=== PATIENT | female | born 1985 | race Caucasian/White ===

== ENCOUNTER 2017-11-24 14:43 | Emergency (ER) | payer OTHER ==
[2017-11-24 15:07] LABS: BILIRUBIN,URINE NEGATIVE (NEGATIVE); GLUCOSE, URINE (UA) NEGATIVE (NEGATIVE); KETONES,URINE (UA) 15 mg/dL (NEGATIVE); LEUKOCYTE ESTERASE, URINE NEGATIVE (NEGATIVE); NITRITE,URINE NEGATIVE (NEGATIVE); OCCULT BLOOD,URINE NEGATIVE (NEGATIVE); PROTEIN,URINE NEGATIVE (NEGATIVE); UROBILINOGEN,URINE 0.2 (NORMAL) E.U./dL (NORMAL)
[2017-11-24 15:11] LABS: CLARITY,URINE HAZY (CLEAR)
[2017-11-24 15:21] LABS: RBC,URINE 0-5 /HPF (0-5)
[2017-11-24 15:22] LABS: AMORPHOUS SEDIMENT,UR Moderate /LPF; BACTERIA,URINE Few /HPF (None Seen); SQUAMOUS EPITHELIAL CELL,UR FEW Squamous (<= Few)
[2017-11-24 15:25] LABS: HCG UR QUAL NEGATIVE
[2017-11-24] MEDS ORDERED: ONDANSETRON 4 MG/2 ML VIAL IVP STA (15:29)
[2017-11-24] MEDS ORDERED: KETOROLAC 60 MG/2 ML VIAL IVP STA (15:29)
--- NOTE | 2017-11-24 15:32 | ED Physician Documentation ---
PD HPI CHEST PAIN - Stated complaint Stated Complaint: ABD PX - Chief complaint Chief Complaint: Abd Pain - History obtained from History obtained from: Patient - History of Present Illness Timing - onset: Other (Since the end of September she has had bloating and intermittent right lower quadrant pain. She had a severe pain in the middle of October, then now 2 days of right lower quadrant pain without bleeding. She has been nauseous but no vomiting. She has a history of uterine fibroid removal at age 17 and 2 C-sections since then.) Review of Systems Ten Systems: 10 systems reviewed and negative Constitutional: denies: Fever, Chills Cardiac: denies: Chest pain / pressure, Palpitations GI: reports: Abdominal Pain, Nausea. denies: Vomiting : reports: Irregular menses (chronic). denies: Dysuria, Frequency, Now EGA, Control, Hysterectomy PD PAST MEDICAL HISTORY - Present Medications Home Medications: Ambulatory Orders Medication Instructions Recorded Confirmed HYDROcod/ACETAM 5/325 [Butler 5/325] 1 - 2 ea PO Q6H PRN #15 tablet 11/24/17 Ibuprofen [Motrin] 800 mg PO Q8H PRN #30 tablet 11/24/17 Ondansetron HCl [Zofran] 4 mg PO Q6H PRN #10 tablet 11/24/17 - Allergies Allergies/Adverse Reactions: Allergies Allergy/AdvReac Type Severity Reaction Status Date / Time meperidine [From Demerol] AdvReac Nausea Verified 11/24/17 14:52 PD ED PE NORMAL - Vitals Vital signs reviewed: Yes - General General: Alert and oriented X 3, No acute distress - Cardiac Cardiac: RRR, No murmur - Respiratory Respiratory: No respiratory distress, Clear bilaterally - Abdomen Abdomen: Normal bowel sounds, Soft, Other (TTP RLQ No G/R/M) - Back Back: No CVA TTP, No spinal TTP - Derm Derm: Normal color, Warm and dry - Extremities Extremities: No edema, No calf tenderness / cord - Neuro Neuro: Alert and oriented X 3, Normal speech - Psych Psych: Normal mood, Normal affect Results - Vitals Vitals: Vital Signs - 24 hr 11/24/17 11/24/17 11/24/17 14:48 15:49 16:59 Temperature 36.9 C 36.6 C Heart Rate 80 84 88 Respiratory 18 16 16 Rate Blood Pressure 124/73 100/60 102/64 O2 Saturation 100 98 99 Oxygen O2 Source Room air - Labs Labs: Laboratory Tests 11/24/17 11/24/17 11/24/17 15:02 15:40 15:40 WBC 9.6 RBC 4.51 Hgb 14.1 Hct 40.8 MCV 90.4 MCH 31.2 H MCHC 34.5 RDW 12.9 Plt Count 233 MPV 9.4 Neut # (Auto) 6.8 H Lymph # (Auto) 2.0 [place] # (Auto) 0.5 Eos # (Auto) 0.3 Baso # (Auto) 0.1 Absolute Nucleated RBC 0.00 Nucleated RBC % 0.0 Sodium 138 Potassium 3.1 L Chloride 100 L Carbon Dioxide 28 Anion Gap 10.0 BUN 14 Creatinine 0.7 Estimated GFR (MDRD) 96 Glucose 128 H Calcium 9.2 Total Bilirubin 1.0 AST 22 ALT 16 Alkaline Phosphatase 52 Total Protein 7.9 Albumin 4.6 Globulin 3.3 Albumin/Globulin Ratio 1.4 Lipase 30 Urine Color YELLOW Urine Clarity HAZY Urine pH 7.0 Ur Specific [place] 1.015 Urine Protein NEGATIVE Urine Glucose (UA) NEGATIVE Urine Ketones 15 H Urine Occult Blood NEGATIVE Urine Nitrite NEGATIVE Urine Bilirubin NEGATIVE Urine Urobilinogen 0.2 (NORMAL) Ur Leukocyte Esterase NEGATIVE Urine RBC 0-5 Urine WBC 0-3 Ur Squamous Epith Cells FEW Squamous Amorphous Sediment Moderate Urine Bacteria Few Ur Microscopic Review INDICATED Urine Culture Comments NOT INDICATED Urine HCG, Qual NEGATIVE - Rads (name of study) CT Abd Radiology: EMP read contemporaneously (Multiple right ovarian cysts the largest being 3.3 x 2.9 cm with a small amount of free fluid. Normal appendix.) PD MEDICAL DECISION MAKING - ED course ED course: 32-year-old woman with PCO S presents with right lower quadrant pain, borderline leukocytosis. CT scan done showing right ovarian cyst and normal appendix. She was comfortable after Toradol. - Sepsis Event Vital Signs: Vital Signs - 24 hr 11/24/17 11/24/17 11/24/17 14:48 15:49 16:59 Temperature 36.9 C 36.6 C Heart Rate 80 84 88 Respiratory 18 16 16 Rate Blood Pressure 124/73 100/60 102/64 O2 Saturation 100 98 99 Oxygen O2 Source Room air Departure - Departure Disposition: 01 Home, Self Care Clinical Impression: Abdominal pain Qualifiers: Abdominal location: right lower quadrant Qualified Code(s): R10.31 - Right lower quadrant pain Cyst of ovary Qualifiers: Laterality: right Qualified Code(s): N83.201 - Unspecified ovarian cyst, right side Condition: Good Record reviewed to determine appropriate education?: Yes Instructions: ED Cyst Ovarian Follow-Up: [facility] [Provider Group] - Within 1 week Prescriptions: HYDROcod/ACETAM 5/325 [Butler 5/325] 1 - 2 ea PO Q6H PRN #15 tablet PRN Reason: Pain Ibuprofen [Motrin] 800 mg PO Q8H PRN #30 tablet PRN Reason: PAIN &/OR FEVER Ondansetron HCl [Zofran] 4 mg PO Q6H PRN #10 tablet PRN Reason: Nausea / Vomiting Comments: Return if worse or if pain is uncontrolled. Follow-up with a sticker hand [place]. Do not drink or drive while taking narcotic pain medication. Note that many narcotic pain relievers also contain Tylenol/acetaminophen. Please ensure that your total dose of acetaminophen from all sources does not exceed 3 g (3000 mg) per day. You may get constipated while on this medication. Take a stool softener such as Colace twice a day while you are on it. Also add an [id number] laxative such as senna or MiraLAX on any day that you do not have a bowel movement. If you received a narcotic pain medication or sedative while in the emergency department, do not drive for the next 24 hours.
[2017-11-24 16:01] LABS: BASOPHILS # (AUTO) 0.1 10^3/uL (0.0-0.1); BASOPHILS % (AUTO) 1.3 %; EOSINOPHILS # (AUTO) 0.3 10^3/uL (0.0-0.7); EOSINOPHILS % (AUTO) 2.9 %; HGB - HEMOGLOBIN 14.1 g/dL (12.0-16.0); LYMPHOCYTES % (AUTO) 20.4 %; MEAN CORPUSCULAR HEMOGLOBIN 31.2 pg (27.0-31.0); MEAN CORPUSCULAR HGB CONC 34.5 g/dL (32.0-36.0); MEAN CORPUSCULAR VOLUME 90.4 fL (81.0-99.0); MEAN PLATELET VOLUME 9.4 fL (7.9-10.8); MONOCYTES # (AUTO) 0.5 10^3/uL (0.0-1.0); MONOCYTES % (AUTO) 4.9 %; NEUTROPHILS # (AUTO) 6.8 10^3/uL (1.5-6.6); NEUTROPHILS % (AUTO) 70.5 %; PLT - PLATELET COUNT 233 10^3/uL (130-450); RED BLOOD COUNT 4.51 10^6/uL (4.20-5.40); RED CELL DISTRIBUTION WIDTH 12.9 % (12.0-15.0); WHITE BLOOD COUNT 9.6 x10^3/uL (4.8-10.8)
[2017-11-24] MEDS ORDERED: IOPAMIDOL-300 100 ML VIAL ONE (16:11)
[2017-11-24 16:15] LABS: ALBUMIN 4.6 g/dL (3.2-5.5); ALBUMIN/GLOBULIN RATIO 1.4 (1.0-2.2); CALCIUM 9.2 mg/dL (8.5-10.3); CREATININE 0.7 mg/dL (0.4-1.0); TOTAL PROTEIN 7.9 g/dL (6.7-8.2)
[2017-11-24] MEDS ORDERED: IOPAMIDOL-300 100 ML VIAL IVP ONE (16:53)
[2017-11-24 17:00] VITALS: BP 102/64
--- NOTE | 2017-11-24 17:09 | CT Report ---
Procedure Date: 11/24/2017 Accession Number: [id number] / [id number] Procedure: CT - Abdomen/Pelvis W/ CPT Code: FULL RESULT: EXAM: CT ABDOMEN AND PELVIS EXAM DATE: 11/24/2017 04:52 PM. CLINICAL HISTORY: Right lower quadrant pain. COMPARISONS: None. TECHNIQUE: Routine helical CT imaging was performed through the abdomen and pelvis. IV contrast: ISOVUE 300 100mL. Enteric contrast: No. Reconstructions: Coronal and sagittal. In accordance with CT protocol optimization, one or more of the following dose reduction techniques were utilized for this exam: automated exposure control, adjustment of mA and/or KV based on patient size, or use of iterative reconstructive technique. FINDINGS: Lung Bases: Unremarkable. Liver: Normal. No masses. Gallbladder/Bile Ducts: Unremarkable. Spleen: Normal. Pancreas: Normal. Adrenal Glands: Normal. Kidneys: Normal. No masses or hydronephrosis. Peritoneal Cavity/Bowel: Normal. No free fluid, free air or adenopathy. No masses or acute inflammatory process. The appendix is well visualized and normal. Pelvic Organs: Several right ovarian cysts, the largest of which measures 3.3 x 2.9 cm. Normal caliber uterus. Unremarkable left ovary. Small amount of free cul-de-sac fluid. Vasculature: No aneurysms or other significant abnormality. Bones: No significant abnormality. Other: None. IMPRESSION: 1. Several right ovarian cysts, dominant cyst 3.3 x 2.9 cm. Correlate clinically to determine if dedicated pelvic ultrasound to assess the ovaries should be considered. 2. Small amount of free cul-de-sac fluid. 3. Normal appendix. 4. The rest of study is unremarkable. RADIA
== END 2017-11-24 17:28 | disposition home or self-care (01) ==
LOC: ED 14:43
DX: R10.31 Right lower quadrant pain (principal); N83.201 Unspecified ovarian cyst, right side
CPT/HCPCS: 36415; 74177; 80053; 81001; 81025; 83690; 85025; 96374; 96375; 99283; Q9967; 81003; 87086

== ENCOUNTER 2017-12-30 18:20 | Outpatient (CLI) | payer OTHER ==
--- NOTE | 2017-12-31 04:30 | Ultrasound Report ---
Reason: PELVIC AND PERINEAL PAIN Procedure Date: 12/30/2017 Accession Number: [id number] / [id number] Procedure: US - Pelvic w/Transvaginal CPT Code: FULL RESULT: EXAM: PELVIC ULTRASOUND EXAM DATE: 12/30/2017 07:52 PM. CLINICAL HISTORY: Pelvic and perineal pain. COMPARISON: ABDOMEN/PELVIS W/ 11/24/2017 4:46 PM. TECHNIQUE: Real-time transabdominal pelvic scan performed to identify the uterus and adnexa and as an overview of other pelvic structures, followed by transvaginal scan to provide greater detail of the uterus and adnexa, with static image documentation. FINDINGS: Uterus: 9.1 x 4.6 x 4.4 cm, volume 95.8 cc. Anteverted position. Normal overall size and echotexture. Masses: None. Endometrium: 11.5 mm. Normal. Cervix: Unremarkable. Right Ovary: 3.3 x 2.9 x 2.8 cm, volume 13.9 cc. Normal echotexture and blood flow. Left Ovary: 3.3 x 2.1 x 1.9 cm, volume 6.8 cc. Normal echotexture and blood flow. Free Fluid: None. Other: None. IMPRESSION: Normal pelvic ultrasound. RADIA
== END 2017-12-30 18:21 | disposition home or self-care (01) ==
LOC: DI 18:20
PROVIDERS: ATTEND Obstetrics & Gynecology
DX: R10.2 Pelvic and perineal pain (principal)
CPT/HCPCS: 76830; 76856

== ENCOUNTER 2018-01-05 12:19 | Outpatient (CLI) | payer OTHER ==
[2018-01-05 13:01] LABS: BASOPHILS % (AUTO) 0.6 %; EOSINOPHILS # (AUTO) 0.4 10^3/uL (0.0-0.7); EOSINOPHILS % (AUTO) 4.7 %; HGB - HEMOGLOBIN 14.3 g/dL (12.0-16.0); LYMPHOCYTES # (AUTO) 2.6 10^3/uL (1.5-3.5); LYMPHOCYTES % (AUTO) 29.9 %; MEAN CORPUSCULAR HEMOGLOBIN 31.5 pg (27.0-31.0); MEAN CORPUSCULAR HGB CONC 34.8 g/dL (32.0-36.0); MEAN CORPUSCULAR VOLUME 90.3 fL (81.0-99.0); MEAN PLATELET VOLUME 8.9 fL (7.9-10.8); MONOCYTES # (AUTO) 0.5 10^3/uL (0.0-1.0); MONOCYTES % (AUTO) 5.4 %; NEUTROPHILS # (AUTO) 5.1 10^3/uL (1.5-6.6); NEUTROPHILS % (AUTO) 59.4 %; PLT - PLATELET COUNT 262 10^3/uL (130-450); RED BLOOD COUNT 4.55 10^6/uL (4.20-5.40); RED CELL DISTRIBUTION WIDTH 12.7 % (12.0-15.0); WHITE BLOOD COUNT 8.6 x10^3/uL (4.8-10.8)
[2018-01-05 13:30] LABS: HCG,QUALITATIVE BLOOD NEGATIVE
== END 2018-01-05 12:20 | disposition home or self-care (01) ==
LOC: LAB 12:19
PROVIDERS: ATTEND Obstetrics & Gynecology
DX: Z01.812 Encounter for preprocedural laboratory examination (principal); N94.6 Dysmenorrhea, unspecified; G89.29 Other chronic pain; R10.2 Pelvic and perineal pain
CPT/HCPCS: 36415; 84703; 85025; 86850; 86900; 86901

== ENCOUNTER 2018-01-06 08:29 | Day surgery (SDC) | payer OTHER ==
--- NOTE | 2018-01-05 19:45 | PREOP HISTORY & PHYSICAL ---
DATE OF ADMISSION: 01/06/2018 Physician: Enedelia Villegas DO FACOG IDENTIFICATION: A 32-year-old G2, P0-2-0-2. HISTORY OF PRESENT ILLNESS: Mandy is a patient of [facility] who has had a long history of pelvic pain and dysmenorrhea. Since the of her youngest child, a daughter named Ara, she has been having worsening menses. Though she does have irregular menses with respect to the timing and frequency, the amount of bleeding has been irregular. At its worse, her bleeding occurs such that she has to change a tampon on an hourly basis. Mandy's main concern, however, is her pelvic pain. When she has her menses, he has significant pressure, as well as cramping. This cramping is what disturbs her the most. The pain is both in her back and her sides, as well as anteriorly. The pain is similar to Kent Quiroga. She also experiences a tearing sensation. This pain is worse when she is on her period and having constipation. The pain also may occur after her menses. If her bladder gets full, she will feel cramping. She denies any abnormal discharge. Mandy has had so much pain that she has had to go in the emergency department because of it. She denies any hematochezia or hematuria. She denies any dysuria. Mandy is to the point that she wants her uterus removed. She does have a significant history of previous abdominal surgery, specifically with delivery x2, as well as exploratory laparotomy that was converted from diagnostic laparoscopy for myomectomy. She did have a trial of Lupron Depot, in order to help shrink a fibroid. PAST MEDICAL HISTORY 1. Eosinophilic esophagitis. 2. Resolved childhood asthma. PAST SURGICAL HISTORY: 1. delivery x2. 2. Age-17 diagnostic laparoscopy with conversion to open myomectomy. 3. Multiple EGDs with dilation of a Schatzki's ring. ALLERGIES: DEMEROL, WITH WHICH SHE VOMITS BLOOD. MEDICATIONS: Multivitamin. SOCIAL HISTORY: She denies any tobacco or illicit drug use. She does consume alcohol on a social basis. 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 She is to [place], whose call sign is [place]. He is a [employer] flight officer who flies [employer]. They have children, a son, Vahe, who is 12, as well as daughter, Ara, who is 6 years of age. PAST OBSTETRICAL HISTORY: Two deliveries at 34 weeks, secondary to labor. She had deliveries, secondary to her myomectomy. PAST GYNECOLOGICAL HISTORY: She did have a grapefruit-sized fibroid at age 17. Pap smears have been described within normal limits, and she denies any sexually transmitted diseases. She does have a history of PCOS. FAMILY HISTORY: Great-aunt had breast cancer. A paternal aunt had fibroids. Maternal grandmother had breast cancer. REVIEW OF SYSTEMS: Negative, unless otherwise stated. OBJECTIVE: VITAL SIGNS: Height is 68 inches. Weight 126 pounds. BMI is 21. Blood pressure 104/64. GENERAL: Maira is a well-developed, well-nourished, female, in no apparent distress. She is alert and oriented x3. Mandy is very pleasant and easy to speak to. HEENT: Within normal limits. CARDIOVASCULAR: Regular. No murmurs or rubs. PULMONARY: Lungs are clear to auscultation. ABDOMEN: Soft. Nontender. She does have a well-healed prior Pfannenstiel scar that appears to be puckered, particularly at the corners. LABORATORY DATA: The 11/24/2017 labs show white count of 9.6, H and H of 14.1, hematocrit of 40.8, platelets of 233, potassium 3.1, creatinine 0.7, glucose 128, AST 22, ALT 16. Urinalysis shows ketones, a few squamous cells, and moderate amorphous sediment. The 11/24/2017 CT abdomen and pelvis for right lower quadrant pain showed several right ovarian cysts, dominant cyst measuring 3.3 x 2.9 cm, correlate clinically to determine a dedicated pelvic ultrasound to assess the ovaries should be considered. Small amount of free cul-de-sac fluid. Normal appendix. The 12/30/2017 pelvic ultrasound revealed a uterus measuring 9.1 x 4.6 x 4.4 cm, volume 95.8 mL, anteverted position, normal overall size and echotexture. No masses. Endometrium 11.5 mm. Cervix normal. Left and right ovaries are within normal limits. There are no cysts noted. Free fluid negative. The 12/24/2017 Pap smear is negative, as well as a screen for the high-risk human papilloma virus. ASSESSMENT 1. A 32-year-old G2, P0-2-0-2. 2. Dysmenorrhea. 3. Chronic pelvic pain. PLAN: 1. Discussed with Mandy the risks, benefits, alternatives, indications, and expectations of a total laparoscopic hysterectomy, bilateral salpingectomy and cystoscopy with possible exploratory laparotomy. I discussed with Mandy the risks, benefits, alternatives, indications, and expectations of the aforementioned procedures. Included in our discussion were the risks of hemorrhage, infection, damage to surrounding organs, which may include, but not limited to, an inadvertent laceration, cauterization, or ligation of adjacent intestines, bladder, and ureters. With the surgery, Mandy will never be able to have children anymore nor will she have menses. Given her Pap smear status and history, I would anticipate Mandy to never have to do Pap smears. Mandy also understands that the surgery is permanent and irreversible. She would no longer be able to have children. With the surgery, secondary to her history of adhesions, this may be a difficult case, in which an exploratory laparotomy may be needed. I did tell Mandy that I would be able to absolutely get rid of her menses; however, with respect to her dysmenorrhea and chronic pelvic pain, it is another issue. I do feel that Mandy will have a majority of her pain resolved, but I cannot guarantee 100% would be gone. In fact, it will be unclear as to how much resolution of pain Mandy will experience, until after everything is said and done. Mandy understands that with the surgery this may promote the development of adhesions and chronic pelvic pain. Also, with the surgery, she may have damage to nerves. Mandy understood the discussion, and all her questions were answered to her satisfaction. Mandy verbalized her desire to proceed with surgery. Consent forms have been signed. 2. Mandy to get a CBC, type, and screen prior to surgery. 3. We will be aggressive on Mandy's pain control. We will give her Celebrex, as well as IV acetaminophen in preop. 5. We will also give Mandy scopolamine, as she has had a difficult time with the nausea and vomiting after surgeries. 6. Prescriptions for ibuprofen, Tylenol, and oxycodone have been given for Mandy for her postoperative recovery. 7. Mandy is to see me in 2 weeks at [facility] for routine postop check. 8. Mandy to call should she have any worsening fevers, chills, abdominal pain, or vaginal bleeding. TD: 01/05/2018 15:07 MTDD
--- NOTE | 2018-01-06 08:07 | ANESTHESIA ---
Pre-Anesthesia VS, & Labs - Diagnosis pelvic pain, uterine fibroids - Procedure Total laparoscopic hysterectomy with bilat salpingectomy/poss. cysto Height 5 ft 5 in Body Mass Index 20.6 - NPO >8 hours Last Fluid Intake: spis with celebrex pre-op - Is Patient ?: No - Lab Results Lab results reviewed: Yes Home Medications and Allergies Home Medications: Ambulatory Orders Medication Instructions Recorded Confirmed No Known Home Medications 01/05/18 01/05/18 No Known Home Medications 01/05/18 Allergies/Adverse Reactions: Allergies Allergy/AdvReac Type Severity Reaction Status Date / Time meperidine [From Demerol] AdvReac Nausea Verified 01/05/18 13:31 Anes History & Medical History - Medical History Cardiovascular: reports: None Pulmonary: reports: Asthma Gastrointestinal: reports: GERD, Other Urinary: reports: None Neuro: reports: None Musculoskeletal: reports: None Endocrine/Autoimmune: reports: None Blood Disorders: reports: None Skin: reports: None Smoking Status: Never smoker - Surgical History Gynecologic: section, Other Exam General: Alert, Oriented x3, Cooperative, No acute distress Dental: WNL Mouth Openin Fingerbreadth Mallampati classification: II Thyromental Distance: 4-6 cm Respiratory: Lungs clear, Normal breath sounds, No respiratory distress, No accessory muscle use Cardiovascular: Regular rate Mental/Cognitive Status: Alert/Oriented X3 Cognitive Status: Within normal limits Plan Anesthesia Type: General Consent for Procedure(s) Verified and Reviewed: Yes Code Status: Attempt Resuscitation ASA classification: 1-Healthy patient Is this case an emergency?: No
[~2018-01-06 08:29] MED LIST: ACETAMINOPHEN 1,000 MG/100 ML 100 ML IV ONE; BUPIVACAINE 0.25%-EPI 1:200000 PF 30 ML VIAL ONE; CELECOXIB 100 MG CAPSULE PO ONE; GABAPENTIN 400 MG CAPSULE ONE; SCOPOLAMINE PATCH TOP ONE; ceFAZolin 2 GM/50 ML 2 GM/50 ML BAG IV ONE
[2018-01-06] MEDS ORDERED: ROCURONIUM 50 MG/5 ML VIAL IVP ONE (08:30)
[2018-01-06] MEDS ORDERED: fentaNYL 100 MCG/2 ML VIAL IVP ONE (08:30)
[2018-01-06] MEDS ORDERED: LIDOCAINE-MPF 2% 5 ML VIAL IM ONE (08:30)
[2018-01-06] MEDS ORDERED: NEOSTIGMINE 1 MG/1 ML 10 ML MDV IVP ONE (08:30)
[2018-01-06] MEDS ORDERED: PROPOFOL 200 MG/20 ML VIAL IVP ONE (08:30)
[2018-01-06] MEDS ORDERED: DEXAMETHASONE 4 MG/ML VIAL IVP ONE (08:30)
[2018-01-06] MEDS ORDERED: ONDANSETRON 4 MG/2 ML VIAL IVP ONE (08:30)
[2018-01-06] MEDS ORDERED: GLYCOPYRROLATE 1 MG/5 ML VIAL IVP ONE (08:30)
[2018-01-06] MEDS ORDERED: PHENYLEPHRINE 10 MG/ML VIAL IV ONE (08:30)
[2018-01-06] MEDS ORDERED: MIDAZOLAM 2 MG/2 ML VIAL IVP ONE (08:30)
[2018-01-06] MEDS ORDERED: ACETAMINOPHEN 1,000 MG/100 ML 100 ML IV ONE (08:30)
[2018-01-06] MEDS ORDERED: LACTATED RINGERS 1,000 ML IV ONE ×4 (08:49→16:05)
[2018-01-06] MEDS ORDERED: BUPIVACAINE 0.25%-EPI 1:200000 PF 30 ML VIAL SUBQ ONE ×2 (09:55)
[2018-01-06] MEDS ORDERED: LORazepam 2 MG/ML VIAL IVP PRN (11:33)
[2018-01-06] MEDS ORDERED: ONDANSETRON 4 MG/2 ML VIAL IVP PRN (11:33)
[2018-01-06] MEDS ORDERED: oxyCODONE 5 MG TABLET PO PRN (11:33)
[2018-01-06] MEDS ORDERED: HYDROmorphone 0.5 MG/0.5 ML SYRINGE IVP PRN (11:33)
--- NOTE | 2018-01-06 11:33 | OPERATIVE REPORT ---
Operative Report - Other Other Information/Narrative: Date of Operation: 01/06/2018 Surgeon: Enedelia Villegas DO FACOG Ferryboat Operator: Juan F Concepcion MD FACOG Investigation Division Sergeant: Geremias Swan CRNA Anesthesia: GET Pre-Op Dx: 1. 32 yo 2. Dysmenorrhea 3. Chronic pelvic pain Post-Op Dx: 1. 32 yo 2. Dysmenorrhea 3. Chronic pelvic pain Procedure: 1. Total laparoscopic hysterectomy 2. Bilateral salpingectomy 3. Cystoscopy Findings: 1. Normal uterus, fallopian tubes and ovaries 2. Normal bladder Specimens: Uterus and fallopian tubes Drains: Triplett catheter to gravity EBL: 30 mL Complications: None OP Note Dictation #: [id number]
[2018-01-06] MEDS ORDERED: PROMETHAZINE 25 MG/1 ML VIAL ONE (11:43)
[2018-01-06] MEDS ORDERED: ACETAMINOPHEN 500 MG TABLET PO SCH (12:00)
[2018-01-06] MEDS ORDERED: KETOROLAC 30 MG/ML VIAL ONE (12:36)
[2018-01-06] MEDS ORDERED: oxyCODONE 5 MG TABLET ONE ×2 (14:40→15:18)
--- NOTE | 2018-01-06 14:40 | OPERATIVE REPORT ---
DATE OF OPERATION: 01/06/2018 Physician: Enedelia Villegas DO SURGEON: Enedelia Villegas DO, FACOG SHIFT SUPERVISOR FILM PROCESSING: Juan F Concepcion MD, FACOG. CLOTH PACKER: Stan Swan CRNA. ANESTHESIA: General endotracheal tube. PREOPERATIVE DIAGNOSES: 1. A 32-year-old G2, P0-2-0-2. 2. Dysmenorrhea. 3. Chronic pelvic pain. POSTOPERATIVE DIAGNOSIS: 1. A 32-year-old G2, P0-2-0-2. 2. Dysmenorrhea. 3. Chronic pelvic pain. PROCEDURES: 1. Total laparoscopic hysterectomy with bilateral salpingectomy. 2. Cystoscopy. FINDINGS: 1. Normal uterus, fallopian tubes, and ovaries. 2. Normal bladder. 3. Normal appendix and liver edge. SPECIMENS: Uterus and fallopian tubes. DRAINS: Triplett catheter to gravity. ESTIMATED BLOOD LOSS: 30 mL COMPLICATIONS: None. BRIEF HISTORY: The patient is a patient of [facility] who has a chronic history of dysmenorrhea as well as pelvic pain. Patient wanted definitive treatment with a hysterectomy. I discussed with the patient the risks, benefits, alternatives, indications, expectations of a total laparoscopic hysterectomy, bilateral salpingectomy and cystoscopy. Included in our discussion, where the risk of hemorrhage, infection, damage to surrounding organs. With respect to damage to organs she understands that there may be an inadvertent laceration, cauterization or ligation of the adjacent bladder, ureters and intestines. Furthermore, with this procedure she will be infertile and no longer be able to have children and will no longer be able to have menses and currently by the ACOG guidelines, she will no longer need to have Pap smear screenings. Patient understands that with this procedure it is unclear as to how much pain or resolution she will obtain. It will not be known until after she has completely healed. Finally with this procedure, adhesion formation may occur which may lead to chronic pelvic pain. Afterwards questions were answered to her satisfaction. She verbalized her desire to proceed with surgery. Consent forms have been signed. OPERATION IN DETAIL: The patient was identified and consented, taken to the operating room and IV accesses were in place. She was then given sequential compression devices, which were placed on her lower extremities and turned on. The patient has been given a general endotracheal tube anesthesia per Stan Swan. Patient was given 2 grams of Ancef IV for postoperative cellulitis prophylaxis. The patient was then prepped and draped in normal sterile fashion in a lithotomy position using Yellofin stirrups. Triplett catheter was placed in her bladder. Timeout was performed, which correctly identified the patient, site of the procedure and the procedures themselves. A medium V-Care cup was placed in the uterus. The laparoscopic port sites were then identified in the abdomen. They were all 5 mm in length. The first one was in the subumbilical fold, second one in the right lower quadrant and third one in the left lower quadrant. Incisions were found by first finding the respective anterior superior iliac spines and then moving 2 fingerbreadths superior and medial to those locations. A total of 10 mL of 1% lidocaine with epinephrine was used. Stab incisions were made in the identified sites. The periumbilical port site was first placed in the abdomen using the Visiport. Under direct visualization of the camera, entrance of the abdomen was made. No trauma to intraabdominal organs was noted. Inspection of the pelvis showed a normal uterus, fallopian tubes, and ovaries. There were some inconsequential adhesions between the uterus and the lower anterior abdominal wall. Next, the 2 port sites were placed under direct visualization of the camera. The right side of the uterus was first addressed. The right fallopian tube was identified and followed to its fimbriated end. The fallopian tube was then excised using the LigaSure, cutting just inferior to the fallopian tube on the mesosalpinx. This incision was then carried through medially and then inferiorly to incise the round ligament. Incision of the broad leaf was then carried inferiorly. The uterine artery was then cauterized and incised with the LigaSure. A portion of the bladder flap was then created by dissecting out the vesicouterine peritoneum, after making an incision in the anterior leaf of the broad ligament. Attention was then turned towards the left aspect of the uterus. The left fallopian tube was identified and followed to its fimbriated end. The fallopian tube was then incised just inferior to the fallopian tube on the mesosalpinx with the LigaSure. Continuing on with the LigaSure the incision was then extended to incise the round ligament and then the broad ligament just lateral to the uterus. The uterine artery was then clamped, cauterized, and incised. The bladder flap was then further developed. After the bladder flap was developed, the superior cup with the V-Care could be palpated with instruments. With the Harmonic spatula, an incision was made in the vagina and then the cervix was then excised circumferentially. The uterus and the fallopian tubes were then removed out of the abdomen. The vaginal cuff was then closed with a running stitch of 0 V-Loc suture. Hemostasis was noted. Reinspection of the abdomen and pelvis found it to be hemostatically stable. Cystoscopy was then performed. A 30-degree camera was placed in the bladder, along with normal saline solution. Both ureteral orifices were identified and a normal efflux of urine was seen extruding from the orifices. Photos of this were taken. Also, further inspection of the bladder dome and trigone found it to be intact. At this point, the procedure had been completed. All instruments were removed from the bladder and the Triplett catheter was replaced. All instruments were removed from the laparoscopic abdominal procedure and CO2 gas was allowed to egress in the atmosphere, thus removing the pneumoperitoneum. The laparoscopic port sites were then closed with 4-0 Monocryl, and Dermabond was placed on top. The patient tolerated the procedure well and was taken back to the recovery room in stable and awake condition. She will be discharged to home later today after postoperative criteria are met. The Triplett catheter will be removed and patient will be expected to urinate prior to discharge to home. All sponge, lap, needle counts were correct per nurse's report. TD: 01/06/2018 11:51 ARACELI
[2018-01-06 17:01] VITALS: BP 106/67
[2018-01-06] MEDS ORDERED: DOCUSATE SODIUM 100 MG CAPSULE PO SCH (21:00)
== END 2018-01-06 08:30 | disposition home or self-care (01) ==
LOC: SDS 08:29
PROVIDERS: ATTEND Obstetrics & Gynecology
PROC: 0UT74ZZ Resection of Bilateral Fallopian Tubes, Percutaneous Endoscopic Approach (ICD-10-PCS; 2018-01-06)
PROC: 0UT94ZZ Resection of Uterus, Percutaneous Endoscopic Approach (ICD-10-PCS; principal; 2018-01-06 09:30)
DX: N94.6 Dysmenorrhea, unspecified (principal); N92.0 Excessive and frequent menstruation with regular cycle; G89.29 Other chronic pain; R10.2 Pelvic and perineal pain; N72 Inflammatory disease of cervix uteri; Z98.891 History of uterine scar from previous surgery; Z86.39 Personal history of other endocrine, nutritional and metabolic disease; Z87.42 Personal history of other diseases of the female genital tract
CPT/HCPCS: 58571; A9270; J0131; J0690; J3490; J7120

== ENCOUNTER 2018-01-25 11:53 | Outpatient (CLI) | payer OTHER | END 2018-01-25 11:54 | disposition home or self-care (01) | LOC: LAB.R 11:53 | PROVIDERS: ATTEND Obstetrics & Gynecology | DX: N76.0 Acute vaginitis (principal) | CPT/HCPCS: 87480; 87510; 87660 ==

== ENCOUNTER 2018-02-17 11:48 | Outpatient (CLI) | payer OTHER ==
[2018-02-17] MEDS ORDERED: IOPAMIDOL-300 100 ML VIAL ONE (12:01)
[2018-02-17] MEDS ORDERED: IOVERSOL 320 50 ML VIAL ONE (13:02)
[2018-02-17] MEDS ORDERED: IOPAMIDOL-300 100 ML VIAL IVP ONE (13:19)
--- NOTE | 2018-02-17 14:33 | CT Report ---
Reason: LOWER ABDOMINAL PAIN UNSPECIFIED Procedure Date: 02/17/2018 Accession Number: [id number] / [id number] Procedure: CT - Abdomen/Pelvis W/ CPT Code: FULL RESULT: EXAM: CT ABDOMEN AND PELVIS EXAM DATE: 02/17/2018 12:56 PM. CLINICAL HISTORY: LOWER ABDOMINAL PAIN UNSPECIFIED. COMPARISONS: None. TECHNIQUE: Routine helical CT imaging was performed through the abdomen and pelvis. IV contrast: ISOVUE 300 100mL. Reconstructions: Coronal and sagittal. In accordance with CT protocol optimization, one or more of the following dose reduction techniques were utilized for this exam: automated exposure control, adjustment of mA and/or KV based on patient size, or use of iterative reconstructive technique. FINDINGS: Lung Bases: Unremarkable. Solid organs: The liver, spleen, pancreas, and adrenal glands demonstrate a normal CT appearance without evidence of a mass or cyst. The kidneys are without evidence of a mass or hydronephrosis. Peritoneal Cavity/Bowel: There are no dilated loops of bowel to suggest the presence of an obstruction. There is no evidence of diverticulosis or diverticulitis. Pelvic Organs: No mass or cyst is seen within the pelvis. Vasculature: There is no evidence of an abdominal aortic aneurysm. Bones: No focal bony lesion is identified. IMPRESSION: Normal abdomen and pelvis CT. RADIA
== END 2018-02-17 11:49 | disposition home or self-care (01) ==
LOC: DI 11:48
PROVIDERS: ATTEND Obstetrics & Gynecology
DX: M54.5 Low back pain (principal)
CPT/HCPCS: 74177; Q9967

== ENCOUNTER 2018-03-12 08:00 | Outpatient (CLI) | payer OTHER | END 2018-03-12 23:59 | disposition home or self-care (01) | LOC: LAB.R 08:00 | PROVIDERS: ATTEND Obstetrics & Gynecology | DX: N76.0 Acute vaginitis (principal) | CPT/HCPCS: 87480; 87510; 87660 ==

== ENCOUNTER 2018-06-23 14:45 | Outpatient (CLI) | payer OTHER ==
[2018-06-24 06:52] LABS: PROGESTERONE 0.5 ng/mL
== END 2018-06-23 14:46 | disposition home or self-care (01) ==
LOC: LAB 14:45
PROVIDERS: ATTEND Obstetrics & Gynecology
DX: R23.2 Flushing (principal)
CPT/HCPCS: 36415; 82670; 83001; 84144

== ENCOUNTER 2018-07-05 08:12 | Outpatient (CLI) | payer OTHER ==
[2018-07-05 10:48] LABS: THYROID STIMULATING HORMONE 1.1 uIU/mL (0.34-5.60)
[2018-07-05 10:50] LABS: FREE T4 (FREE THYROXINE) 0.87 ng/dL (0.58-1.64)
[2018-07-05 10:54] LABS: PROLACTIN 7.74 ng/mL
== END 2018-07-05 08:13 | disposition home or self-care (01) ==
LOC: LAB 08:12
PROVIDERS: ATTEND Obstetrics & Gynecology
DX: R23.2 Flushing (principal)
CPT/HCPCS: 36415; 81243; 81599; 82024; 82306; 82533; 83519; 84146; 84439; 84443; 86255; 88230; 88262

== ENCOUNTER 2018-08-03 10:36 | Outpatient (CLI) | payer OTHER ==
--- NOTE | 2018-08-03 14:21 | DEXA Report ---
Reason: PRIMARY OVARIAN FAILURE Procedure Date: 08/03/2018 Accession Number: [id number] / [id number] Procedure: DEX - Dexa Spine and/or Hip CPT Code: FULL RESULT: EXAM: Dexa Spine and/or Hip DATE: 08/03/2018 11:21 AM CLINICAL HISTORY: PRIMARY OVARIAN FAILURE TECHNIQUE: Dual energy x-ray absorptiometry (DXA) was performed on a HomeTouch System. Regions measured are the AP Spine, femoral neck, and if needed forearm. COMPARISON: None. In accordance with the International Society for Clinical Densitometry (ISCD) guidelines, data from previous exams may be reanalyzed using current recommendations and techniques. This is done to allow a more accurate basis for comparison with the current study. FINDINGS: The data for the lumbar spine is as follows: BMD (g/cm/cm) T-SCORE Z-SCORE REGION L1 0.912 -1.8 -1.5 L2 1.024 -1.5 -1.1 L3 1.088 -0.9 -0.6 L4 1.076 -1.0 -0.7 TOTAL 1.032 -1.2 -0.9 NOTE: All evaluable vertebrae are used for classification The data for the hip is as follows: BMD (g/cm/cm) T-SCORE Z-SCORE REGION Neck 0.761 -2.0 -1.5 TOTAL 0.776 -1.8 -1.5 NOTE: The femoral neck or total proximal femur, whichever is lowest, is used for classification. IMPRESSION: THE WHO CLASSIFICATION BASED ON THE INTERNATIONAL REFERENCE STANDARD IS OSTEOPENIA. THE FRACTURE RISK IS INCREASED. RECOMMENDATION: Patients with diagnosis of osteoporosis or osteopenia should have regular bone mineral density assessment. For those eligible for Medicare, routine testing is allowed once every 2 years. Testing frequency can be increased for patients who have rapidly progressing disease or for those who are receiving medical therapy to restore bone mass. COMMENT: World Health Organization (WHO) definitions for osteoporosis and osteopenia: NORMAL BMD: T-score at -1.0 or higher, fracture risk is low OSTEOPENIA BMD: T-score between -1.0 and -2.5, fracture risk is increased. OSTEOPOROSIS BMD: T-score at -2.5 or lower, fracture risk is high. National Osteoporosis Foundation recommends: 1. Obtain adequate dietary calcium (at least 1200 mg per day) and vitamin D (400-800 international units per day). 2. Participate, as appropriate, in regular weightbearing and muscle-strengthening exercise. 3. Avoid tobacco use and reduce alcohol and caffeine intake. 4. For more detailed information see the website at www.NOF.org.
== END 2018-08-03 10:37 | disposition home or self-care (01) ==
LOC: DI 10:36
PROVIDERS: ATTEND Obstetrics & Gynecology
DX: M85.89 Other specified disorders of bone density and structure, multiple sites (principal)
CPT/HCPCS: 77080

== ENCOUNTER 2018-08-19 14:25 | Outpatient (CLI) | payer OTHER ==
[2018-08-20 07:07] LABS: PROGESTERONE 1.3 ng/mL
== END 2018-08-19 14:26 | disposition home or self-care (01) ==
LOC: LAB 14:25
PROVIDERS: ATTEND Obstetrics & Gynecology
DX: E28.39 Other primary ovarian failure (principal)
CPT/HCPCS: 36415; 81599; 82627; 82670; 84144; 84402; 84403